=== PATIENT | female | born 1980 | race Hispanic/Latino ===

== ENCOUNTER 2017-07-02 12:43 | Emergency (ER) | payer SELFPAY ==
--- NOTE | 2017-07-02 13:52 | RAD ---
2 VIEWS SOFT TISSUE NECK: Date: 07/02/17 COMPARISON: 02/14/15. HISTORY: Evaluate for foreign body. Painful swallowing. FINDINGS: Epiglottis has a normal caliber. Aerodigestive tract is patent. No radiopaque foreign body. No prever tebral soft tissue swelling. IMPRESSION: No radiopaque foreign body. Direct visualization is recommended. POS: [facility]
== END 2017-07-02 14:20 | disposition short-term general hospital (02) ==
LOC: MADERS 12:43
DX: T17.228A Food in pharynx causing other injury, initial encounter (principal); I10 Essential (primary) hypertension; Z79.899 Other long term (current) drug therapy
CPT/HCPCS: 70360